=== PATIENT | male | born 1980 | race Caucasian/White ===

== ENCOUNTER 2016-10-09 13:08 | Emergency (ER) | payer SELFPAY ==
[~2016-10-09] VITALS: Ht 165.1 cm; Wt 54.5 kg
[2016-10-09] MEDS: LIDOCAINE HCL BUFFERED 1% 20 ML VIAL INJ ONE (15:11)
[2016-10-09] MEDS: PERTUSS(ACELL),DIPH,TET VAC/PF 0.5 ML VIAL IM ONE (15:11)
[2016-10-09 15:42] VITALS: BP 108/56
[2016-10-09] MEDS: BACITRACIN 0.9 GM PACKET OINTMENT TP ONE (16:01)
== END 2016-10-09 16:12 | disposition home or self-care (01) ==
LOC: EEVIPCON 13:10 → EMS 13:10
DX: S81.812A Laceration without foreign body, left lower leg, initial encounter (principal); F17.210 Nicotine dependence, cigarettes, uncomplicated; W45.8XXA Other foreign body or object entering through skin, initial encounter; Y93.89 Activity, other specified; Y92.89 Other specified places as the place of occurrence of the external cause; Y99.8 Other external cause status
CPT/HCPCS: 12004; 90471; 90715; 99283; J3490